=== PATIENT | female | born 2000 | race Two or more races ===

== ENCOUNTER 2019-08-23 12:30 | Inpatient (IN) | payer OTHER ==
[~2019-08-23] VITALS: Ht 160 cm; Wt 76.7 kg
[2019-08-31] MEDS ORDERED: PRENATAL TABLE1 EAC1 PO (17:53)
== END 2019-09-03 16:56 | disposition home or self-care (01) | DRG 807 ==
LOC: LDR 08-31 17:30 → OB/GYN 09-01 12:23 → LDR 09-03 12:30 → OB/GYN 09-03 16:56
PROVIDERS: ADMIT Obstetrics & Gynecology
PROC: 3E033VJ Introduction of Other Hormone into Peripheral Vein, Percutaneous Approach (ICD-10-PCS; 2019-08-31)
PROC: 10907ZC Drainage of Amniotic Fluid, Therapeutic from Products of Conception, Via Natural or Artificial Opening (ICD-10-PCS; 2019-08-31)
PROC: 4A1HXCZ Monitoring of Products of Conception, Cardiac Rate, External Approach (ICD-10-PCS; 2019-08-31)
PROC: 10E0XZZ Delivery of Products of Conception, External Approach (ICD-10-PCS; principal; 2019-09-01)
PROC: 0UQGXZZ Repair Vagina, External Approach (ICD-10-PCS; 2019-09-01)
DX: O71.4 Obstetric high vaginal laceration alone (principal); Z37.0 Single live birth; Z3A.39 39 weeks gestation of pregnancy